=== PATIENT | female | born 1945 | race Caucasian/White ===

== ENCOUNTER 2020-09-12 10:34 | Day surgery (SDC) | payer MEDICARE, OTHER, SELFPAY ==
[2020-09-08 13:43] VITALS: BMI 21.4
[2020-09-12] VITALS (7 sets, daily range): BP systolic 143–172; BP diastolic 85–113; PULSE 95–118; RESP 16–18; TEMP 36.3–36.6; O2SAT 97–100
[2020-09-12 11:23] LABS: Coronavirus 19 IgG Antibody Positive (Negative); Coronavirus 19 IgM Antibody Negative (Negative)
--- NOTE | 2020-09-12 13:07 | P.PCN_ITS ---
[facility] Procedure Note Procedure Note:: Upper Endoscopy Procedure Report: Esophagogastroduodenoscopy with cold biopsies and TTS balloon dilation Endoscopost: Nadeem Shukla II, MD Referring Physician: Gretchen Hussein MD Date of Procedure: September 12, 2020 Equipment: Olympus GIF 180 standard upper endoscope Sedation: MAC sedation Indications: Mrs. Valladares is a 75-year-old female with a long history of swallowing difficulties and dysphagia. She has had an esophageal stricture. She has had issues since the 1960s or 1970s. She had prior Heller myotomy, pyloroplasty and vagotomy. She has had longstanding reflux. She did have esophageal dilation in January 2017 (to 15 mm), April 2017 (to 18 mm), October 2017 (to 20 mm) and again in December 2018 (to 18 mm). She is once again here for dysphagia to solid foods. This occurs primarily with breads and meats. She has had no heartburn, reflux or weight loss. Procedure: Prior to the procedure, a history and physical exam was performed, and patient's medications and allergies were reviewed. The risks, benefits and alternatives of the sedation and procedure were discussed with the patient. All questions were answered and informed consent was obtained. The patient was brought to the procedure room. Patient identification and proposed procedure were verified by the physician and the nurse. The patient was placed in a left lateral decubitus position and the scope was passed under direct vision. Throughout the procedure, the patient's blood pressure, pulse, and oxygen saturations were monitored continuously. The upper GI endoscopy was accomplished without difficulty. The patient tolerated the procedure well. Findings: The scope was passed directly into the upper esophagus and advanced to the third portion of the duodenum. Upon withdrawal, the post bulbar duodenum and duodenal bulb were normal. The pylorus was very patulous are widely patent from prior pyloroplasty. The scope was withdrawn into the stomach. There was mild reactive gastropathy of the antrum. The body and fundus of the stomach were grossly normal. Upon retroflexion there was no hiatal hernia. The scope was withdrawn into the esophagus. There was a distal esophageal stricture and one single tongue of salmon-colored mucosa that was biopsied to rule out short segment Calles's esophagus. The stricture distally was fibrotic and this was dilated to 20 mm with a TTS hydrostatic balloon (maximally dilated). There was no evidence of reflux esophagitis. The mid and proximal esophagus were mildly dilated but there was no other mucosal abnormalities identified. There was some mild cricopharyngeal spasm and this was dilated to 15 to 18 mm with a TTS hydrostatic balloon. The remainder of the esophageal mucosa was normal. Impression: 1. 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 Nonerosive GERD with possible short segment Calles's esophagus (single tongue of salmon-colored mucosa) 3. 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 Mild reactive gastropathy with patulous pylorus Plan: I will follow-up the biopsies. I would continue PPI therapy. If this recurs, I would consider using intramucosal corticosteroids (Kenalog). I will discuss the findings with the patient and family.
--- NOTE | 2020-09-12 13:50 | P.PN_ITS ---
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 - Anesthesia Plan Anesthesia Risk discussed: Yes Anesthesia Plan: Verified ASA Class: III Anesthesia Type: General [facility] History Medical History: Reports:: Hyperlipidemia Denies:: Cancer, Diabetes Mellitus Type 1, Diabetes Mellitus Type 2, Internal Pacemaker, MRSA, Seizures *Have you ever received a pneumonia vaccine?: Yes *Have you received a flu vaccine this season?: Yes Anesthesia experience/problems:: none Other Surgeries: No: Pacemaker Amputation: No Fractures: No - *Social History Last grade of school completed: High school graduate Alcohol Intake: never Substance Use Type: denies use *Occupational Status:: retired *Travel in the last 8 weeks: None Family Hx:: Unable to obtain, No significant family history
== END 2020-09-12 14:01 | disposition home or self-care (01) ==
PROVIDERS: PCP Family Medicine; Visit Provider Internal Medicine Gastroenterology
PROC: 0DJ08ZZ Inspection of Upper Intestinal Tract, Via Natural or Artificial Opening Endoscopic (ICD-10-PCS; CPT 43235; principal; 2020-09-12 12:00)
DX: K22.2 Esophageal obstruction (principal); T81.89XA Other complications of procedures, not elsewhere classified, initial encounter; K21.9 Gastro-esophageal reflux disease without esophagitis; K22.10 Ulcer of esophagus without bleeding; K22.4 Dyskinesia of esophagus; K31.1 Adult hypertrophic pyloric stenosis; K31.9 Disease of stomach and duodenum, unspecified; E78.5 Hyperlipidemia, unspecified; Z79.899 Other long term (current) drug therapy
CPT/HCPCS: 43239; 43249; 36415; 86328; 88305; C1726